=== PATIENT | female | born 1980 | race Caucasian/White ===

== ENCOUNTER 2018-04-24 05:25 | Inpatient (IN) ==
[2018-04-24] MEDS ORDERED: LACTATED RINGER'S 1,000 ML IV SCH ×3 (06:00→10:15)
[2018-04-24] MEDS ORDERED: CEFOXITIN IV SCH (06:00)
[2018-04-24] MEDS ORDERED: DEXTROSE 5% IV SCH (06:00)
[2018-04-24] MEDS ORDERED: CITRIC ACID/SODIUM CITRATE 15 ML UDC PO SCH (06:00)
[2018-04-24 06:04] LABS: Basophils # (auto) 0.01 K/uL (0-0.2); Basophils % (auto) 0.1 %; Eosinophils # (auto) 0.06 K/uL (0-0.5); Eosinophils % (auto) 0.7 %; Hematocrit (blood only) 38.7 % (37-47); Hemoglobin 13.2 g/dL (12.0-16.0); Immature Granulocytes # (auto) 0.04 K/uL (0.00-0.02); Immature Granulocytes % (auto) 0.5 %; Lymphocytes # (auto) 2.27 K/uL (1.2-3.4); Mean Corpuscular Volume 95.3 fL (80-100); Mean Platelet Volume 11.4 fL (7.4-10.4); Monocytes # (auto) 0.69 K/uL (0.11-0.59); Monocytes % (auto) 7.9 %; Neutrophils # (auto) 5.67 K/uL (1.4-6.5); Neutrophils % (auto) 64.8 %; Platelet Count 189 K/uL (130-400); RDW Standard Deviation 45.3 fL (36.4-46.3); Red Blood Count 4.06 M/uL (4.2-5.4); White Blood Count 8.74 K/uL (4.8-10.8)
[2018-04-24 06:19] LABS: Mean Corpuscular Hgb Conc 34.1 g/dL (32-36)
--- NOTE | 2018-04-24 07:22 | History & Physical Report ---
Date of Service April 24, 2018 Assessment & Plan (1) History of delivery, currently : 38 yo at 39.1 wks, h/o prior Csection Scheduled Repeat Csection VSS Afebrile FHR reassuring Plan RLTCS Signed informed consent History of Present Illness Chief Complaint: Patient is a 38 yo at 39.1 wks presenting today for scheduled Repeat Csection She was here in L&D with contractions was hoping for TOLAC/ Her cervix has not changed and was sent home last night Contractions spaced out No LOF/VB +FM Now she desires Repeat Csection Understands the risks of surgery including but not limited to bleeding, infection, injury to surrounding organs( bowels, blader, ureters), Blood cloths n legs, lungs, scarring, adnesion She signed informed consent Her has been complicated by 1) AMA 2) GDMA1 3) Smoker 4)h/o LEEP 5) h/o Csection Primary Care Provider: Leticia Castro MD Allergies Allergy/AdvReac Type Severity Reaction Status Date / Time No Known Allergies Allergy Verified 04/23/18 11:44 Home Medications Home Medications Medication Instructions Recorded Confirmed Type vit no.[id number] 1 tab PO DAILY 04/23/18 04/24/18 History [ Vitamin] Patient History Medical History Family history of reaction to anesthesia MOTHER EXTREME PONV AND ALLERGIC TO MORPHINE Gestational diabetes Pre-eclampsia BEING MONITORED FOR CURRENTLY Surgical History H/O LEEP ABDNORMAL CERVICAL CELLS History of section History of dilatation and curettage History of tooth extraction Family History Mother Family history of diabetes mellitus Grandfather (Maternal) Family history of diabetes mellitus Social History Preferred Language: Japanese Communication Ability: Effective Conference Services Coordinator Required: No Beliefs That Will Affect Care: None marital status: Current Living Situation: Spouse Current Living Situation Comment: lives with and son Other Information That Helps Us Care for You: No Feels Safe at Home: Yes Safety Concerns: Feels Safe At This Time Smoking Status: Current every day smoker Hx Alcohol Use: No Hx Substance Use: No Review of Systems All systems reviewed & are unremarkable except as noted in HPI & below Physical Exam Vital Signs (Past 24 Hours): Last Vital Signs Temp 36.8 C 04/24/18 05:37 Pulse 99 H 04/24/18 05:42 Resp 18 04/24/18 05:37 BP 131/81 04/24/18 05:42 Respiratory: normal respiratory effort, lungs clear to auscultation normal respiratory effort Auscultation: lungs clear to auscultation bilaterally Cardiovascular: Rate/Rhythm: regular rate and regular rhythm Heart Sounds: normal S1 and normal S2 Gastrointestinal (Abdomen): soft, NT, gravid Musculoskeletal: Ext NT, no edema Monitoring External Monitor Categ I
[2018-04-24] MEDS ORDERED: MoRPHine SULFATE PF 1 MG/ML 10 ML AMP/VIAL ONE (08:42)
[2018-04-24] MEDS ORDERED: OXYTOCIN 10 UNITS/ML VIAL ONE (09:27)
[2018-04-24] MEDS ORDERED: ePHEDrine sulfate 50 MG/ML SYR ONE (09:27)
[2018-04-24] MEDS ORDERED: ePHEDrine sulfate 50 MG/ML AMP ONE (09:27)
[2018-04-24] MEDS ORDERED: ePHEDrine sulfate 50 MG/ML AMP IV PRN (09:32)
[2018-04-24] MEDS ORDERED: NALOXONE HCL 1 MG in SODIUM CHLORIDE 0.9% 1000ML 1,000 ML IV PRN (09:32)
[2018-04-24] MEDS ORDERED: KETOROLAC 30 MG/ML VIAL IV PRN (09:32)
[2018-04-24] MEDS ORDERED: NALOXONE HCL 0.4 MG/1 ML VIAL/CARP IV PRN (09:32)
[2018-04-24] MEDS ORDERED: MoRPHine SULFATE PF 1 MG/ML 10 ML AMP/VIAL INT SPINAL ONE (09:32)
[2018-04-24] MEDS ORDERED: LACTATED RINGER'S 500 ML IV PRN (09:32)
[2018-04-24] MEDS ORDERED: HYDROmorphone INJ 0.5 MG/0.5 ML SYR IV PRN (09:32)
[2018-04-24] MEDS ORDERED: MoRPHine SULFATE 2 MG/ML CARP IV PRN (09:32)
[2018-04-24] MEDS ORDERED: NALBUPHINE HCL INJ 10 MG/ML AMP IV PRN (09:32)
[2018-04-24] MEDS ORDERED: MEPERIDINE HCL 25 MG/ML CARP IV PRN (09:32)
[2018-04-24] MEDS ORDERED: ONDANSETRON INJ 2 MG/ML 2 ML VIAL IV PRN (09:32)
[2018-04-24] MEDS ORDERED: DiphenhydrAMINE HCL 50 MG/ML VIAL IV PRN ×2 (09:32)
[2018-04-24] MEDS ORDERED: NALOXONE HCL 0.08 MG in SYRINGE 1.8 ML IV PRN (09:32)
[2018-04-24] MEDS ORDERED: ONDANSETRON INJ 2 MG/ML 2 ML VIAL ONE (09:41)
[2018-04-24] MEDS ORDERED: SODIUM CHLORIDE 0.9% 1000ML 1,000 ML IV SCH (09:45)
[2018-04-24] MEDS ORDERED: NO NARCOTICS OR SEDATIVES SCH (09:45)
[2018-04-24] MEDS ORDERED: fentaNYL citrate 100 MCG/2 ML VIAL ONE (09:46)
--- NOTE | 2018-04-24 10:07 | Post Operative Brief Note ---
Immediate Post Op Note v1 Date of Surgery April 24, 2018 Pre & Post Diagnosis Operation Date: 04/24/18 07:30 Pre-Op Diagnosis: Term with Gestational Hypertension;39 1/7 weeks;History of Prior Caesarean Section; Desires Repeat Post-Op Diagnosis: Same; Delivery of a live male child at 0912 Procedure Operation Date: 04/24/18 07:30 Actual Procedures p Repeat Section in LD - Krissy Gupta MD Surgeon Krissy Gupta MD Template Cutter Dr. Ramos Estimated Blood Loss 600 Findings Consistent with Post-Op Diagnosis Fluids 1300 ml Drains Ellington Catheter (DRAINING CLEAR YELLOW URINE THROUGHOUT PROCEDURE) Complications none Disposition Accompanied Patient To Recovery: Yes Disposition: L&D Overlapping Procedure I was present for: the critical portions of procedure. (I WAS PRESENT FOR THE ENTIRE CASE)
[2018-04-24] MEDS ORDERED: SENNA 8.6 MG TAB PO PRN (10:10)
[2018-04-24] MEDS ORDERED: HYDROCORTISONE ACETATE 25 MG SUPP PR PRN (10:10)
[2018-04-24] MEDS ORDERED: SUPERCREAM 0.870% 15 GM JAR EXT PRN (10:10)
[2018-04-24] MEDS ORDERED: BENZOCAINE 20% AER SPR 82.5 GM CAN EXT PRN (10:10)
[2018-04-24] MEDS ORDERED: DIPHTHERIA/TETANUS/PERTUSSIS 0.5 ML SYR/VIAL IM ONE (10:10)
[2018-04-24] MEDS ORDERED: PROMETHAZINE HCL 25 MG in SODIUM CHLORIDE 0.9% 50 ML IV PRN (10:10)
[2018-04-24] MEDS ORDERED: MAGNESIUM HYDROXIDE SUSP 30 ML UDC PO PRN (10:10)
--- NOTE | 2018-04-24 10:14 | Anesthesiology Consultation ---
Date of Service April 24, 2018 Assessment & Plan Chart Review Chart Review: Acceptable Risk for Surgery Consults Requested none NPO Date Last Intake of Fluids: 04/23/18 Time Last Intake of Fluids: 20:00 Date Last Intake of Solids: 04/23/18 Time Last Intake of Solids: 20:00 History Surgery Operation Date: 04/24/18 07:30 Proposed Procedures p Section in LD - Krissy Gupta MD Height/Weight Height: 5 ft 5 in Weight: 88.451 kg Allergies Allergy/AdvReac Type Severity Reaction Status Date / Time No Known Allergies Allergy Verified 04/23/18 11:44 Medications Home Medications Medication Instructions Recorded Confirmed Last Taken vit no.[id number] 1 tab PO DAILY 04/23/18 04/24/18 04/21/18 21:00 [ Vitamin] Active Medications Generic Name Dose Route Start Last Admin Trade Name Freq PRN Reason Stop Dose Admin Cefoxitin Sodium 3,000 mg/ 115 mls @ 230 mls/hr 04/24/18 06:00 04/24/18 08:26 Dextrose IV 04/25/18 05:59 230 mls/hr PREOP JIMENEZ Administration Lactated Ringer's 1,000 mls @ 125 mls/hr 04/24/18 06:47 04/24/18 06:43 Lr IV 05/24/18 06:46 125 mls/hr .Q8H JIMENEZ Administration Past Medical History Medical History Family history of reaction to anesthesia MOTHER EXTREME PONV AND ALLERGIC TO MORPHINE Gestational diabetes Pre-eclampsia BEING MONITORED FOR CURRENTLY Past Family History Family History Mother Family history of diabetes mellitus Grandfather (Maternal) Family history of diabetes mellitus Past Surgical History Surgical History H/O LEEP ABDNORMAL CERVICAL CELLS History of section History of dilatation and curettage History of tooth extraction Social History Smoking Status: Current every day smoker tobacco type: cigarettes Smoking cigarettes per day: 10 Do You Dip or Chew Tobacco: No Hx Alcohol Use: No Hx Substance Use: No substance use type: does not use Physical Exam Vital Signs Last Vital Signs Temp 36.8 C 04/24/18 05:37 Pulse 64 04/24/18 10:12 Resp 18 04/24/18 05:37 BP 159/79 H 04/24/18 10:12 Pulse Ox 93 04/24/18 10:12 Testing Laboratory Results 04/24/18 05:55 Blood Type A Positive 04/24/18 05:55 Antibody Screen NEGATIVE 04/24/18 05:55
--- NOTE | 2018-04-24 11:20 | Anesthesiology Progress Note ---
Date of Service April 24, 2018 Anesthesia Post Procedure Vital Signs Vital Signs: Temp Pulse Resp BP Pulse Ox 04/24/18 11:15 60 98 04/24/18 11:10 60 97 04/24/18 11:09 71 150/69 H 04/24/18 11:05 61 98 04/24/18 11:00 70 20 98 04/24/18 10:59 68 159/72 H 04/24/18 10:55 58 L 97 04/24/18 10:50 66 97 04/24/18 10:49 71 161/73 H 04/24/18 10:45 75 98 04/24/18 10:40 66 97 04/24/18 10:38 76 147/85 H 04/24/18 10:35 79 97 04/24/18 10:30 67 96 04/24/18 10:28 77 171/88 H 04/24/18 10:25 95 H 98 04/24/18 10:24 78 94 04/24/18 10:20 60 95 04/24/18 10:17 65 89 L 04/24/18 10:15 72 98 04/24/18 10:12 64 159/79 H 93 04/24/18 10:11 80 175/90 H 04/24/18 10:10 75 97 04/24/18 08:30 102 H 95 04/24/18 08:25 97 H 95 04/24/18 08:20 96 H 96 04/24/18 08:15 91 H 96 04/24/18 08:10 94 H 96 04/24/18 08:05 93 H 93 04/24/18 05:42 99 H 131/81 04/24/18 05:37 36.8 C 99 H 18 131/81 Pain Intensity Abdomen: Pain Intensity: 4 Notes Mental Status: alert / awake / arousable and participated in evaluation Patient Amnestic to Procedure: Yes Nausea / Vomiting: adequately controlled Pain: adequately controlled Airway Patency, RR, SpO2: stable & adequate BP & HR: stable & adequate Hydration State: stable & adequate Anesthetic Complications: no major complications apparent
[2018-04-24] MEDS: OXYTOCIN 20 UNITS in LACTATED RINGER'S 1,000 ML IV SCH ×2 (11:24→20:29)
--- NOTE | 2018-04-24 12:35 | Operative Report ---
DATE OF OPERATION: 04/24/2018 PREOPERATIVE DIAGNOSES: The patient is a 38-year-old 3, para 1-0-1-1, at 39 weeks and 1 day of gestation with a prior history of section and desires repeat section. POSTOPERATIVE DIAGNOSES: The patient is a 38-year-old 3, para 1-0-1-1, at 39 weeks and 1 day of gestation with a prior history of section and desires repeat section. PROCEDURE: Repeat low transverse with a Pfannenstiel skin incision. SURGEON: Krissy Jefferson MD. WEB APPLICATION TESTER: Evan Ramos MD. ESTIMATED BLOOD LOSS: 600 mL. FLUIDS: 1300 mL of lactated Ringer's. DRAINS: Ellington catheter drained 325 mL of clear urine. ANESTHESIA: Spinal. ANESTHESIOLOGIST: Dudley Carpio MD. COMPLICATIONS: None. FINDINGS: Baby was a viable male infant delivered in cephalic presentation at 9:12 a.m. Apgars were 9/9, weight was 3095 g. Maternal findings; normal uterus, fallopian tubes and ovaries. DESCRIPTION OF PROCEDURE: The patient was taken to the operating room where spinal anesthesia was given without difficulty. She was placed in dorsal supine position with a leftward tilt. She was prepared and draped in usual sterile fashion. A Pfannenstiel skin incision was made and carried through to the underlying layer of fascia with the Bovie. Fascia was incised in the midline and incision was extended laterally with the help of Riojas scissors. Upper aspect of the fascial incision was then grasped with 2 Keiko clamps, elevated, underlying rectus muscle was dissected off sharply with Riojas scissors. Lower aspect of the fascial incision was grasped with 2 Keiko clamps, elevated, underlying rectus muscle was dissected off sharply with Riojas scissors. The rectus muscles were in the midline. Peritoneum was entered and the peritoneal incision was extended superiorly and inferiorly with good visualization of the bladder. The Diaz abdominal wall retractor was placed to retract the abdominal wall during surgery and the bladder blade was inserted. The vesicouterine peritoneum was identified, grasped with pickups, entered sharply with Metzenbaum scissors and the bladder flap was created digitally and the bladder blade was reinserted. Lower segment was incised in a transverse fashion, incision extended laterally with fingers. Membranes were ruptured; clear fluid was obtained. Baby's head was delivered without difficulty. Shoulders were delivered with minimal traction. Baby's mouth and nose were suctioned. Cord was clamped x2 and cut at 1 minute delay, and the baby was handed to waiting production coordinator. Placenta was delivered manually as intact and complete. Uterus was exteriorized, cleared of all clots and debris. Fundus was firm. Incision was repaired with 0 Vicryl in a running locked fashion and a second imbricating layer was placed with 0 Vicryl in a running locked fashion. Excellent hemostasis was achieved. The cul-de-sac was irrigated with warm normal saline and suctioned, and the uterus was returned to the abdomen. The pelvis was irrigated with warm normal saline and suctioned. Incision was checked to be hemostatic and then the parietal peritoneum was reapproximated with 3-0 Vicryl in a running fashion and the rectus muscles were reapproximated with the same suture in a running fashion. Then, the rectus fascia was reapproximated with 0 Vicryl in a running fashion. Subcuticular fat tissue was brought together with 3-0 Vicryl in a running fashion. Skin was closed with 4-0 Monocryl in a subcuticular fashion. The patient tolerated the procedure well. Sponge, lap, needle count was correct x3 and she received 3 g of cefazolin. No complications happened. I was and Dr. Ramos was present during whole procedure. I attest to the content of the Intraoperative Record and any orders documented therein. Any exceptions are noted below. KEMAL
[2018-04-24] MEDS ORDERED: METOCLOPRAMIDE HCL INJ 5 MG/ML 2 ML VIAL IV PRN (13:48)
[2018-04-24] MEDS: SIMETHICONE 80 MG CHEW PO SCH ×3 (13:51→20:28)
[2018-04-24] MEDS: DOCUSATE SODIUM 100 MG CAP PO SCH (20:28)
[2018-04-25] MEDS ORDERED: DC INTRASPINAL MORPHINE SCH (03:32)
[2018-04-25] MEDS ORDERED: KETOROLAC 30 MG/ML VIAL IV PRN (03:34)
[2018-04-25] MEDS ORDERED: ONDANSETRON INJ 2 MG/ML 2 ML VIAL IV PRN (03:34)
[2018-04-25] MEDS ORDERED: DiphenhydrAMINE HCL 50 MG/ML VIAL IV PRN (03:34)
[2018-04-25] MEDS: OXYCODONE/ACETAMINOPHEN 5mg/325mg TAB PO PRN ×3 (04:06→20:52)
[2018-04-25] MEDS: IBUPROFEN 600 MG TAB PO PRN ×4 (04:07→20:53)
[2018-04-25 06:42] LABS: Basophils # (auto) 0.01 K/uL (0-0.2); Basophils % (auto) 0.1 %; Eosinophils # (auto) 0.02 K/uL (0-0.5); Eosinophils % (auto) 0.2 %; Hematocrit (blood only) 36.2 % (37-47); Hemoglobin 12.2 g/dL (12.0-16.0); Immature Granulocytes # (auto) 0.02 K/uL (0.00-0.02); Immature Granulocytes % (auto) 0.2 %; Lymphocytes # (auto) 1.85 K/uL (1.2-3.4); Lymphocytes % (auto) 18.4 %; Mean Corpuscular Hgb Conc 33.7 g/dL (32-36); Mean Corpuscular Volume 96.5 fL (80-100); Mean Platelet Volume 11.4 fL (7.4-10.4); Monocytes # (auto) 0.67 K/uL (0.11-0.59); Monocytes % (auto) 6.6 %; Neutrophils # (auto) 7.51 K/uL (1.4-6.5); Neutrophils % (auto) 74.5 %; Platelet Count 180 K/uL (130-400); RDW Coefficient of Variation 13.1 % (11.5-14.5); RDW Standard Deviation 45.6 fL (36.4-46.3); Red Blood Count 3.75 M/uL (4.2-5.4); White Blood Count 10.08 K/uL (4.8-10.8)
--- NOTE | 2018-04-25 08:27 | Anesthesiology Progress Note ---
Date of Service April 25, 2018 Anesthesia Post Procedure Vital Signs Vital Signs: Temp Pulse Pulse Resp BP BP BP 04/25/18 04:10 36.7 C 70 18 145/80 H 04/25/18 03:00 18 04/25/18 02:00 18 04/25/18 01:00 18 04/25/18 00:56 36.7 C 80 18 134/79 04/25/18 00:00 18 04/24/18 23:00 18 04/24/18 22:00 20 04/24/18 21:00 16 04/24/18 20:00 20 04/24/18 19:50 36.4 C L 79 20 141/87 H 04/24/18 19:00 20 04/24/18 18:11 18 04/24/18 17:20 18 04/24/18 16:33 18 04/24/18 15:20 36.4 C L 69 18 136/75 04/24/18 14:40 18 04/24/18 13:40 36.4 C L 62 18 148/82 H 04/24/18 12:40 36.7 C 79 18 158/73 H 04/24/18 12:35 63 04/24/18 12:30 82 04/24/18 12:25 109 H 04/24/18 12:20 71 04/24/18 12:15 78 04/24/18 12:10 36.4 C L 65 20 04/24/18 12:09 63 138/66 04/24/18 12:05 66 04/24/18 12:00 76 04/24/18 11:55 75 04/24/18 11:50 84 04/24/18 11:45 68 04/24/18 11:40 68 20 171/80 H 04/24/18 11:35 73 04/24/18 11:30 74 04/24/18 11:25 74 04/24/18 11:20 82 04/24/18 11:15 60 04/24/18 11:10 60 20 04/24/18 11:09 71 150/69 H 04/24/18 11:05 61 04/24/18 11:00 70 20 04/24/18 10:59 68 159/72 H 04/24/18 10:55 58 L 04/24/18 10:50 66 04/24/18 10:49 71 161/73 H 04/24/18 10:45 75 04/24/18 10:40 66 04/24/18 10:38 76 147/85 H 04/24/18 10:35 79 04/24/18 10:30 67 04/24/18 10:28 77 171/88 H 04/24/18 10:25 95 H 04/24/18 10:24 78 04/24/18 10:20 60 04/24/18 10:17 65 04/24/18 10:15 72 04/24/18 10:12 64 159/79 H 04/24/18 10:11 80 175/90 H 04/24/18 10:10 36.3 C L 75 20 04/24/18 08:30 102 H Pulse Ox Pulse Ox 04/25/18 04:10 98 04/25/18 03:00 98 04/25/18 02:00 98 04/25/18 01:00 98 04/25/18 00:56 04/25/18 00:00 98 04/24/18 23:00 98 04/24/18 22:00 97 04/24/18 21:00 97 04/24/18 20:00 97 04/24/18 19:50 97 04/24/18 19:00 99 04/24/18 18:11 97 04/24/18 17:20 98 04/24/18 16:33 97 04/24/18 15:20 97 97 04/24/18 14:40 98 04/24/18 13:40 99 04/24/18 12:40 99 99 04/24/18 12:35 98 04/24/18 12:30 98 04/24/18 12:25 94 04/24/18 12:20 97 04/24/18 12:15 98 04/24/18 12:10 98 04/24/18 12:09 04/24/18 12:05 98 04/24/18 12:00 98 04/24/18 11:55 98 04/24/18 11:50 98 04/24/18 11:45 96 04/24/18 11:40 99 04/24/18 11:35 98 04/24/18 11:30 98 04/24/18 11:25 98 04/24/18 11:20 97 04/24/18 11:15 98 03/06/19 11:10 97 04/24/18 11:09 04/24/18 11:05 98 04/24/18 11:00 98 04/24/18 10:59 04/24/18 10:55 97 04/24/18 10:50 97 04/24/18 10:49 04/24/18 10:45 98 04/24/18 10:40 97 04/24/18 10:38 04/24/18 10:35 97 04/24/18 10:30 96 04/24/18 10:28 04/24/18 10:25 98 04/24/18 10:24 94 04/24/18 10:20 95 04/24/18 10:17 89 L 04/24/18 10:15 98 04/24/18 10:12 93 04/24/18 10:11 04/24/18 10:10 97 04/24/18 08:30 95 Pain Intensity Abdomen: Pain Intensity: 1 Notes Mental Status: alert / awake / arousable Patient Amnestic to Procedure: Yes Nausea / Vomiting: adequately controlled Pain: adequately controlled Airway Patency, RR, SpO2: stable & adequate BP & HR: stable & adequate Hydration State: stable & adequate Neuraxial Anesthesia: sensory block resolved Anesthetic Complications: no major complications apparent and Pt Satisfied with anesthetic care
[2018-04-25] MEDS: FERROUS SULFATE 325 MG TAB PO SCH (09:11)
[2018-04-25] MEDS: DOCUSATE SODIUM 100 MG CAP PO SCH ×2 (09:11→20:52)
[2018-04-25] MEDS: SIMETHICONE 80 MG CHEW PO SCH ×4 (09:12→20:52)
[2018-04-25] MEDS: PRENATAL VITAMIN 1 TAB PO SCH (09:12)
--- NOTE | 2018-04-25 09:43 | Anesthesiology Progress Note ---
Date of Service April 25, 2018 Anesthesia Post Procedure Vital Signs Vital Signs: Temp Pulse Pulse Resp BP BP BP 04/25/18 08:24 36.9 C 87 18 134/75 04/25/18 04:10 36.7 C 70 18 145/80 H 04/25/18 03:00 18 04/25/18 02:00 18 04/25/18 01:00 18 04/25/18 00:56 36.7 C 80 18 134/79 04/25/18 00:00 18 04/24/18 23:00 18 04/24/18 22:00 20 04/24/18 21:00 16 04/24/18 20:00 20 04/24/18 19:50 36.4 C L 79 20 141/87 H 04/24/18 19:00 20 04/24/18 18:11 18 04/24/18 17:20 18 04/24/18 16:33 18 04/24/18 15:20 36.4 C L 69 18 136/75 04/24/18 14:40 18 04/24/18 13:40 36.4 C L 62 18 148/82 H 04/24/18 12:40 36.7 C 79 18 158/73 H 04/24/18 12:35 63 04/24/18 12:30 82 04/24/18 12:25 109 H 04/24/18 12:20 71 04/24/18 12:15 78 04/24/18 12:10 36.4 C L 65 20 04/24/18 12:09 63 138/66 04/24/18 12:05 66 04/24/18 12:00 76 04/24/18 11:55 75 04/24/18 11:50 84 04/24/18 11:45 68 04/24/18 11:40 68 20 171/80 H 04/24/18 11:35 73 04/24/18 11:30 74 04/24/18 11:25 74 04/24/18 11:20 82 04/24/18 11:15 60 04/24/18 11:10 60 20 04/24/18 11:09 71 150/69 H 04/24/18 11:05 61 04/24/18 11:00 70 20 04/24/18 10:59 68 159/72 H 04/24/18 10:55 58 L 04/24/18 10:50 66 04/24/18 10:49 71 161/73 H 04/24/18 10:45 75 04/24/18 10:40 66 04/24/18 10:38 76 147/85 H 04/24/18 10:35 79 04/24/18 10:30 67 04/24/18 10:28 77 171/88 H 04/24/18 10:25 95 H 04/24/18 10:24 78 04/24/18 10:20 60 04/24/18 10:17 65 04/24/18 10:15 72 04/24/18 10:12 64 159/79 H 04/24/18 10:11 80 175/90 H 04/24/18 10:10 36.3 C L 75 20 Pulse Ox Pulse Ox 04/25/18 08:24 98 04/25/18 04:10 98 04/25/18 03:00 98 04/25/18 02:00 98 04/25/18 01:00 98 04/25/18 00:56 04/25/18 00:00 98 04/24/18 23:00 98 04/24/18 22:00 97 04/24/18 21:00 97 04/24/18 20:00 97 04/24/18 19:50 97 04/24/18 19:00 99 04/24/18 18:11 97 04/24/18 17:20 98 04/24/18 16:33 97 04/24/18 15:20 97 97 04/24/18 14:40 98 04/24/18 13:40 99 04/24/18 12:40 99 99 04/24/18 12:35 98 04/24/18 12:30 98 04/24/18 12:25 94 04/24/18 12:20 97 04/24/18 12:15 98 04/24/18 12:10 98 04/24/18 12:09 04/24/18 12:05 98 04/24/18 12:00 98 04/24/18 11:55 98 04/24/18 11:50 98 04/24/18 11:45 96 04/24/18 11:40 99 04/24/18 11:35 98 04/24/18 11:30 98 04/24/18 11:25 98 04/24/18 11:20 97 04/24/18 11:15 98 04/24/18 11:10 97 04/24/18 11:09 04/24/18 11:05 98 04/24/18 11:00 98 04/24/18 10:59 04/24/18 10:55 97 04/24/18 10:50 97 04/24/18 10:49 04/24/18 10:45 98 04/24/18 10:40 97 04/24/18 10:38 04/24/18 10:35 97 04/24/18 10:30 96 04/24/18 10:28 04/24/18 10:25 98 04/24/18 10:24 94 04/24/18 10:20 95 04/24/18 10:17 89 L 04/24/18 10:15 98 04/24/18 10:12 93 04/24/18 10:11 04/24/18 10:10 97 Pain Intensity Abdomen: Pain Intensity: 1 Notes Mental Status: alert / awake / arousable and participated in evaluation Patient Amnestic to Procedure: Yes Nausea / Vomiting: adequately controlled Pain: adequately controlled Airway Patency, RR, SpO2: stable & adequate Hydration State: stable & adequate Neuraxial Anesthesia: was administered and sensory block is resolving Anesthetic Complications: no major complications apparent and Pt Satisfied with anesthetic care
--- NOTE | 2018-04-25 09:58 | Obstetrical Progress Note ---
Date of Service April 25, 2018 Subjective doing well ambulating well tolerating diet Physical Exam Vital Signs (Past 24 Hours): Last Vital Signs Temp 36.9 C 04/25/18 08:24 Pulse 87 04/25/18 08:24 Resp 18 04/25/18 08:24 BP 134/75 04/25/18 08:24 Pulse Ox 98 04/25/18 08:24 Constitutional: WD/WN, vitals as above comfortable abdomen soft non-tender incision intact no leg edema neg Ian's possible d/c in AM Results & Data Laboratory Results Laboratory Results - last 48 hr 04/24/18 04/24/18 04/24/18 05:55 05:55 20:02 WBC 8.74 RBC 4.06 L Hgb 13.2 Hct 38.7 MCV 95.3 MCH 32.5 MCHC 34.1 RDW Std Deviation 45.3 RDW Coeff of Chadwick 13.0 Plt Count 189 MPV 11.4 H Immature Gran % (Auto) 0.5 Neut % (Auto) 64.8 Lymph % (Auto) 26.0 [place] % (Auto) 7.9 Eos % (Auto) 0.7 Baso % (Auto) 0.1 Immature Gran # (Auto) 0.04 H Neut # (Auto) 5.67 Lymph # (Auto) 2.27 [place] # (Auto) 0.69 H Eos # (Auto) 0.06 Baso # (Auto) 0.01 HIV 1&2 Ab/P24 Ag 4thGn Neg Blood Type A Positive Antibody Screen NEGATIVE 04/25/18 06:21 WBC 10.08 RBC 3.75 L Hgb 12.2 Hct 36.2 L MCV 96.5 MCH 32.5 MCHC 33.7 RDW Std Deviation 45.6 RDW Coeff of Chadwick 13.1 Plt Count 180 MPV 11.4 H Immature Gran % (Auto) 0.2 Neut % (Auto) 74.5 Lymph % (Auto) 18.4 [place] % (Auto) 6.6 Eos % (Auto) 0.2 Baso % (Auto) 0.1 Immature Gran # (Auto) 0.02 Neut # (Auto) 7.51 H Lymph # (Auto) 1.85 [place] # (Auto) 0.67 H Eos # (Auto) 0.02 Baso # (Auto) 0.01 HIV 1&2 Ab/P24 Ag 4thGn Blood Type Antibody Screen
[2018-04-25] MEDS ORDERED: BISACODYL 5 MG TABEC PO SCH (20:00)
[2018-04-26] MEDS: IBUPROFEN 600 MG TAB PO PRN ×2 (05:33→12:14)
[2018-04-26] MEDS: OXYCODONE/ACETAMINOPHEN 5mg/325mg TAB PO PRN ×2 (05:33→12:14)
[2018-04-26 07:15] LABS: Hematocrit (blood only) 35.2 % (37-47); Hemoglobin 11.7 g/dL (12.0-16.0)
[2018-04-26] MEDS: PRENATAL VITAMIN 1 TAB PO SCH (08:37)
[2018-04-26] MEDS: DOCUSATE SODIUM 100 MG CAP PO SCH (08:37)
[2018-04-26] MEDS: FERROUS SULFATE 325 MG TAB PO SCH (08:38)
[2018-04-26] MEDS: SIMETHICONE 80 MG CHEW PO SCH ×2 (08:42→13:11)
--- NOTE | 2018-04-26 09:54 | Progress Note ---
Date of Service April 26, 2018 Assessment & Plan (1) delivery delivered: c/sec day #2 pt doing well pt wishes to be disch home Subjective Review of Systems All systems reviewed & are unremarkable except as noted in HPI & below Physical Exam Vital Signs (Past 24 Hours): Last Vital Signs Temp 36.8 C 04/26/18 07:58 Pulse 88 04/26/18 07:58 Resp 18 04/26/18 07:58 BP 142/82 H 04/26/18 07:58 Pulse Ox 99 04/26/18 07:58 Constitutional: WD/WN, vitals as above well developed and well nourished Eyes: PERRL, conjunctivae normal, anicteric sclerae ENMT: external ear and nose normal, oropharynx normal Neck: trachea midline, no thyromegaly Respiratory: normal respiratory effort, lungs clear to auscultation Cardiovascular: RRR, no murmur, no edema Chest (Breasts): normal inspection/palpation of breasts Gastrointestinal (Abdomen): normal bowel sounds, soft, nontender, no hepatosplenomegaly Musculoskeletal: no cyanosis or clubbing, extremities motor strength 5/5 Skin: no rashes, warm and dry + incision (Clean,dry and intact) Neurologic: patellar DTR's 2+ bilat, sensation intact Psychiatric: A+Ox3, euthymic affect Genitourinary: normal external appearance Lymphatic: no cervical or axillary lymphadenopathy
[2018-04-26] MEDS ORDERED: BISACODYL 10 MG SUPP PR PRN (10:10)
--- NOTE | 2018-04-26 10:10 | Progress Note ---
Date of Service April 26, 2018 Addendum: Reviewed BP with Nurse. pt has no Bp >160/105. Denies headache, SOB or visual changes PIH labs ordered discussed expectant management for now vrs staring meds in view of her minimally elevated BP Bp even though elevated is still not in the range of where we will usually start meds pt will return to office on Sunday for Bp check will call if any problems over the week end Physical Exam Vital Signs (Past 24 Hours): Last Vital Signs Temp 36.8 C 04/26/18 07:58 Pulse 88 04/26/18 07:58 Resp 18 04/26/18 07:58 BP 142/82 H 04/26/18 07:58 Pulse Ox 99 04/26/18 07:58
[2018-04-26 12:20] LABS: Albumin Level 2.5 gm/dl (3.4-5.0); BUN Creatinine Ratio 16.5 (10-20); Calcium 8.4 mg/dl (8.5-10.1); Creatinine Clr Calc Pharmacy 176.3 ml/min; Est GFR (African American) 145.2; Est GFR (Non-African American) 125.3; Potassium 4.1 mmol/L (3.5-5.1)
[2018-04-26 12:22] LABS: Albumin Globulin Ratio 0.6 (0.9-2); Bilirubin,Total 0.2 mg/dl (0.2-1); Globulin 4.1 gm/dl (2.5-4.0); Total Protein 6.6 gm/dl (6.4-8.2)
--- NOTE | 2018-04-26 12:36 | Progress Note ---
Date of Service April 26, 2018 CMP reviewed with Nurse pt will be discharged home RTC on Sunday for BP check Physical Exam Vital Signs (Past 24 Hours): Last Vital Signs Temp 36.7 C 04/26/18 12:00 Pulse 77 04/26/18 12:00 Resp 18 04/26/18 12:00 BP 154/90 H 04/26/18 12:00 Pulse Ox 97 04/26/18 12:00
--- NOTE | 2018-05-03 12:50 | Discharge Summary ---
DETAILS OF ADMISSION: The patient is a 38-year-old G3, P1-0-0-1 at 39 weeks and 1 day of gestation with a history of prior . She was admitted on 04/24/2018 for a repeat . Her surgery was uncomplicated. She delivered a viable male infant at 9:12 a.m. See dictated op note for details. On postop period, she was doing well. Vital signs stable, afebrile. Urine output was good. On postop day #1, she was doing well, ambulating, tolerating regular diet, passing gas. Vital signs stable, afebrile. Physical exam was unremarkable. Abdomen soft, nontender. Incision was clean, dry and intact. Extremities nontender. There is no edema. On postop day #2, she was doing well. She wanted to be discharged home. Her physical exam was unremarkable. Incision was clean, dry and intact. She then developed high blood pressure before discharge. The patient denied headache, change in her vision. The preeclampsia labs were ordered by Dr. Ramos Those were normal/ unremarkable. Her blood pressures were stable. The patient was discharged on postop day #2, to be seen in the office for blood pressure check. Discharge instructions were given when to call, prescriptions were written for pain. She is to be seen in the office in 2 days. KEMAL
== END 2018-04-26 14:15 | disposition home or self-care (01) | DRG 788 ==
LOC: 4S1 05:25 → EDSTATUS 07:30 → 4S2 12:48